=== PATIENT | female | born 1955 | race African-American/Black ===

== ENCOUNTER → 2022-01-22 | Day surgery (SDC) | payer OTHER ==
[~2022-01-22] VITALS: Ht 172.7 cm; Wt 96.2 kg
[~2022-01-22] MED LIST: ASPIRIN CHEWABL81 MG PO; BACITRACIN3.5 G1 TOP; BACTRIM DS TAB1 EACH PO; CITALOPRAM 40MG40 MG PO; MUCINEX 600MG600 MG PO; NORCO 5-325 TA1 EACH PO; PREDNISONE 20MG20 MG PO; TAMIFLU 75MG CA75 MG PO; VENTOLIN HFA IN18 GM INH; VIBRAMYCIN100 MG PO; VITAMIN B-121000 MC1 PO; VITAMIN D5000 UNIT PO; WELLBUTRIN SR150 MG PO
== END | disposition home or self-care (01) ==
LOC: FAS 01-20 11:00
DX: R10.32 Left lower quadrant pain (principal); K59.00 Constipation, unspecified; K57.30 Diverticulosis of large intestine without perforation or abscess without bleeding; K63.89 Other specified diseases of intestine; K63.5 Polyp of colon; K64.4 Residual hemorrhoidal skin tags; F17.200 Nicotine dependence, unspecified, uncomplicated; Z90.710 Acquired absence of both cervix and uterus; Z79.82 Long term (current) use of aspirin; Z90.721 Acquired absence of ovaries, unilateral
CPT/HCPCS: J2250; J2704; J7120